=== PATIENT | female | born 1950 | race Hispanic/Latino ===

== ENCOUNTER 2017-10-04 08:26 | Day surgery (SDC) | payer OTHER ==
[~2017-10-04] VITALS: Ht 157.5 cm; Wt 65.8 kg
[~2017-10-04 08:26] MED LIST: SODIUM CHLORIDE 0.9% 1000ML 1,000 ML IV ONE
[2017-10-04 09:20] VITALS: BP 162/68
[2017-10-04] MEDS ORDERED: GUAI200T5 PO (09:51)
[2017-10-04] MEDS ORDERED: L.AC1CAP6 PO (09:51)
[2017-10-04] MEDS ORDERED: NAPR250T4 PO (09:51)
[2017-10-04] MEDS ORDERED: CA C1TAB95 PO (09:51)
[2017-10-04] MEDS ORDERED: ERGO500014 PO (09:51)
[2017-10-04] MEDS ORDERED: MONT10TA21 PO (09:51)
[2017-10-04] MEDS ORDERED: FLUO10CA21 PO (09:51)
[2017-10-04] MEDS ORDERED: RIZA10TA27 PO (09:51)
[2017-10-04] MEDS ORDERED: MEPERIDINE-PF 50 MG/ML SYG ONE ×3 (10:37→10:51)
[2017-10-04] MEDS ORDERED: MIDAZOLAM HCL 1 MG/ML 2ML VIAL ONE ×2 (10:38→10:51)
[2017-10-04 11:06] VITALS: BP 139/83
== END 2017-10-04 11:47 ==
LOC: ENDO 08:26 → DAH 08:26 → ENDO 11:47
PROVIDERS: ATTEND Internal Medicine Gastroenterology
DX: Z12.11 Encounter for screening for malignant neoplasm of colon (principal); K57.30 Diverticulosis of large intestine without perforation or abscess without bleeding; K21.9 Gastro-esophageal reflux disease without esophagitis; E78.4 Other hyperlipidemia; G43.909 Migraine, unspecified, not intractable, without status migrainosus; F32.9 Major depressive disorder, single episode, unspecified; Z90.710 Acquired absence of both cervix and uterus; Z79.899 Other long term (current) drug therapy; Z80.0 Family history of malignant neoplasm of digestive organs
CPT/HCPCS: A4606; G0121; J2175 ×3; J2250 ×2; J7030; 99152; 99153

== ENCOUNTER → 2018-08-17 | Outpatient (CLI) | payer OTHER ==
[~2018-08-17] MED LIST changes: +CA C1TAB95 PO; +ERGO500014 PO; +FLUO10CA21 PO; +GUAI200T5 PO; +L.AC1CAP6 PO; +MONT10TA21 PO; +NAPR250T4 PO; +RIZA10TA27 PO; -SODIUM CHLORIDE 0.9% 1000ML 1,000 ML IV ONE
== END | disposition home or self-care (01) ==
LOC: RAH 13:28
PROVIDERS: ATTEND Internal Medicine Critical Care Medicine
DX: G93.5 Compression of brain (principal)
CPT/HCPCS: 70551

== ENCOUNTER → 2018-11-07 | Outpatient (CLI) | payer OTHER | END | disposition home or self-care (01) | LOC: OIH 09:30 | PROVIDERS: ATTEND Internal Medicine Critical Care Medicine | DX: Z13.6 Encounter for screening for cardiovascular disorders (principal) | CPT/HCPCS: 75571 ==

== ENCOUNTER → 2018-11-07 | Outpatient (CLI) | payer OTHER | END | disposition home or self-care (01) | LOC: OIH 08:57 | PROVIDERS: ATTEND Internal Medicine Critical Care Medicine | DX: Z01.818 Encounter for other preprocedural examination (principal) | CPT/HCPCS: 71046 ==

== ENCOUNTER → 2019-03-07 | Outpatient (CLI) | payer OTHER | END | disposition home or self-care (01) | LOC: RAH 11:39 | PROVIDERS: ATTEND Internal Medicine Critical Care Medicine | DX: M19.041 Primary osteoarthritis, right hand (principal) | CPT/HCPCS: 73140 ==

== ENCOUNTER → 2019-06-28 | Outpatient (CLI) | payer OTHER | END | disposition home or self-care (01) | LOC: RAH 10:48 | PROVIDERS: ATTEND Internal Medicine | DX: Z12.31 Encounter for screening mammogram for malignant neoplasm of breast (principal) | CPT/HCPCS: 77067 ==

== ENCOUNTER → 2019-07-18 | Outpatient (CLI) | payer OTHER | END | disposition home or self-care (01) | LOC: RAH 08:51 → EDBD 09:00 | PROVIDERS: ATTEND Internal Medicine | DX: K22.4 Dyskinesia of esophagus (principal) | CPT/HCPCS: 74220 ==

== ENCOUNTER 2019-09-02 19:25 | Emergency (ER) | payer OTHER ==
[2019-09-02 20:37] LABS: BASOPHILS % (AUTO) 0.4 % (0.0-5.0); EOSINOPHILS % (AUTO) 1.5 % (0.0-8.0); HEMATOCRIT 39.3 % (36-48); MEAN CORPUSCULAR HEMOGLOBIN 29.7 pg (27.0-33.0); MEAN CORPUSCULAR HGB CONC 32.8 g/dL (32.0-36.0); MEAN CORPUSCULAR VOLUME 90.3 fL (79-99); MONOCYTES % (AUTO) 10.5 % (3.0-13.0); NEUTROPHILS % (AUTO) 51.3 % (40.0-77.0); PLATELET COUNT (AUTO) 252 K/uL (130-400); RED BLOOD CELL COUNT(AUTO) 4.35 MIL/uL (4.00-5.50); RED CELL DISTRIBUTION WIDTH 13.2 % (11.0-15.5); WHITE BLOOD COUNT (AUTO) 7.5 K/uL (4.8-10.8)
[2019-09-02 20:45] LABS: CREATININE 0.7 mg/dL (0.5-1.5); POTASSIUM 3.3 mmol/L (3.5-5.1)
[2019-09-02 20:56] LABS: ALBUMIN 3.7 g/dL (3.5-5.0); BILIRUBIN,TOTAL 0.2 mg/dL (0.2-1.0); TOTAL PROTEIN, SERUM 7.5 g/dL (6.0-8.3)
[2019-09-02 20:57] LABS: INR 0.9 (0.85-1.15); PARTIAL THROMBOPLASTIN TIME 27.3 SEC (26.3-35.5); PROTHROMBIN TIME 9.5 SEC (9.6-11.6)
[2019-09-02 20:58] LABS: APPEARANCE,URINE Clear (CLEAR); BILIRUBIN,URINE Negative (NEGATIVE); COLOR,URINE Yellow (YELLOW); GLUCOSE, URINE (UA) Negative (NEGATIVE); KETONES,URINE Negative (NEGATIVE); LEUKOCYTE ESTERASE ,URINE Trace (NEGATIVE); NITRATE,URINE Negative (NEGATIVE); OCCULT BLOOD,URINE Trace (NEGATIVE); PH,URINE 5.5 (5.0-8.0); PROTEIN,URINE Negative (NEGATIVE); UROBILINOGEN,URINE 0.2 mg/dL (0.2-1.0)
[2019-09-02 21:08] LABS: BACTERIA,URINE Few /HPF (None Seen); MUCUS,URINE Few LPF (None Seen); SQUAMOUS EPITHELIAL CELL,UR Few /HPF (0-2)
[2019-09-02] MEDS ORDERED: POTASSIUM CHLORIDE 20 MEQ ERTAB PO ONE (21:16)
[2019-09-02] MEDS ORDERED: SODIUM CHLORIDE 0.9% 1000ML 1,000 ML IV ONE (21:16)
[2019-09-02 21:18] LABS: B-TYPE NATRIURETIC PEPTIDE < 5 pg/mL (0-100)
== END 2019-09-02 22:50 | disposition home or self-care (01) ==
LOC: EDH 19:25
DX: R42 Dizziness and giddiness (principal); I10 Essential (primary) hypertension; F41.9 Anxiety disorder, unspecified; F32.9 Major depressive disorder, single episode, unspecified
CPT/HCPCS: 36415; 70450; 71045; 80053; 81001; 82550; 83880; 84484; 85025; 85610; 85730; 93005; 99284; J7030

== ENCOUNTER 2019-12-09 19:49 | Emergency (ER) | payer OTHER ==
[2019-12-09 20:30] LABS: BASOPHILS % (AUTO) 0.2 % (0.0-5.0); EOSINOPHILS % (AUTO) 0.4 % (0.0-8.0); HEMATOCRIT 31.7 % (36-48); LYMPHOCYTES % (AUTO) 21.7 % (21.0-51.0); MEAN CORPUSCULAR HEMOGLOBIN 30.6 pg (27.0-33.0); MEAN CORPUSCULAR HGB CONC 33.4 g/dL (32.0-36.0); MEAN CORPUSCULAR VOLUME 91.6 fL (79-99); MONOCYTES % (AUTO) 5.6 % (3.0-13.0); NEUTROPHILS % (AUTO) 71.9 % (40.0-77.0); PLATELET COUNT (AUTO) 176 K/uL (130-400); RED BLOOD CELL COUNT(AUTO) 3.46 MIL/uL (4.00-5.50); RED CELL DISTRIBUTION WIDTH 13.5 % (11.0-15.5); WHITE BLOOD COUNT (AUTO) 9.3 K/uL (4.8-10.8)
[2019-12-09 20:40] LABS: CREATININE 0.8 mg/dL (0.5-1.5); POTASSIUM 3.1 mmol/L (3.5-5.1)
[2019-12-09 20:44] LABS: ALBUMIN 3.9 g/dL (3.5-5.0); BILIRUBIN,TOTAL 0.1 mg/dL (0.2-1.0); TOTAL PROTEIN, SERUM 7.4 g/dL (6.0-8.3)
[2019-12-09 20:46] LABS: INR 0.91 (0.85-1.15); PARTIAL THROMBOPLASTIN TIME 24.3 SEC (26.3-35.5); PROTHROMBIN TIME 9.9 SEC (9.6-11.6)
[2019-12-09 21:32] LABS: APPEARANCE,URINE Clear (CLEAR); BILIRUBIN,URINE Negative (NEGATIVE); COLOR,URINE Yellow (YELLOW); GLUCOSE, URINE (UA) Negative (NEGATIVE); KETONES,URINE Negative (NEGATIVE); LEUKOCYTE ESTERASE ,URINE Negative (NEGATIVE); NITRATE,URINE Negative (NEGATIVE); OCCULT BLOOD,URINE Nonhemolyzed Trace (NEGATIVE); PROTEIN,URINE Negative (NEGATIVE); UROBILINOGEN,URINE 0.2 mg/dL (0.2-1.0)
[2019-12-09 21:39] LABS: AMPHET/METH SCREEN,URINE NEGATIVE (NEGATIVE); BARBITURATE SCREEN, URINE NEGATIVE (NEGATIVE); BENZODIAZEPINES SCREEN,URINE NEGATIVE (NEGATIVE); CANNABINOID SCREEN,URINE NEGATIVE (NEGATIVE); COCAINE SCREEN,URINE NEGATIVE (NEGATIVE); OPIATE SCREEN,URINE NEGATIVE (NEGATIVE); PHENCYCLIDINE SCREEN,URINE NEGATIVE (NEGATIVE)
[2019-12-09 21:54] LABS: BACTERIA,URINE None Seen /HPF (None Seen); RBC,URINE 0-1 /HPF (0-1); WBC,URINE None Seen /HPF (0-1)
[2019-12-09 21:55] LABS: SQUAMOUS EPITHELIAL CELL,UR Rare /HPF (0-2)
== END 2019-12-09 22:34 | disposition home or self-care (01) ==
LOC: EDH 19:49
DX: F10.129 Alcohol abuse with intoxication, unspecified (principal); R41.82 Altered mental status, unspecified; R79.1 Abnormal coagulation profile; I10 Essential (primary) hypertension; F41.9 Anxiety disorder, unspecified; F32.9 Major depressive disorder, single episode, unspecified
CPT/HCPCS: 36415; 70450; 80053; 80305; 81001; 82140; 82270; 82550; 84484; 85025; 85610; 85730; 93005; 99284; G0480

== ENCOUNTER → 2020-04-05 | Outpatient (CLI) | payer OTHER | END | disposition home or self-care (01) | LOC: RAH 14:04 | PROVIDERS: ATTEND Internal Medicine | DX: M75.41 Impingement syndrome of right shoulder (principal); M77.9 Enthesopathy, unspecified | CPT/HCPCS: 73030 ==

== ENCOUNTER → 2020-04-16 | Outpatient (CLI) | payer OTHER | END | disposition home or self-care (01) | LOC: RAH 08:51 | PROVIDERS: ATTEND Internal Medicine | DX: M75.41 Impingement syndrome of right shoulder (principal); M77.9 Enthesopathy, unspecified | CPT/HCPCS: 73221 ==

== ENCOUNTER 2021-05-29 13:59 | Inpatient (IN) | payer MEDICARE, OTHER ==
[~2021-05-29] VITALS: Ht 157.5 cm; Wt 65.8 kg
[~2021-05-29 13:59] MED LIST changes: +NAPR-1196 PO; -NAPR250T4 PO
[2021-05-29] MEDS ORDERED: LACTATED RINGERS 1000ML 1,000 ML IV ONE ×2 (14:22→14:30)
[2021-05-29] MEDS ORDERED: HYDROMORPHONE 1 MG INJ ONE (14:22)
[2021-05-29] MEDS ORDERED: ONDANSETRON 4MG INJ ONE (14:22)
[2021-05-29 14:23] LABS: BASOPHILS % (AUTO) 0.2 % (0.0-5.0); EOSINOPHILS % (AUTO) 0.2 % (0.0-8.0); HEMATOCRIT 41.7 % (36-48); LYMPHOCYTES % (AUTO) 11.2 % (21.0-51.0); MEAN CORPUSCULAR HEMOGLOBIN 29.7 pg (27.0-33.0); MEAN CORPUSCULAR HGB CONC 32.9 g/dL (32.0-36.0); MEAN CORPUSCULAR VOLUME 90.3 fL (79-99); MONOCYTES % (AUTO) 5.3 % (3.0-13.0); NEUTROPHILS % (AUTO) 82.8 % (40.0-77.0); PLATELET COUNT (AUTO) 229 K/uL (130-400); RED BLOOD CELL COUNT(AUTO) 4.62 MIL/uL (4.00-5.50); RED CELL DISTRIBUTION WIDTH 12.9 % (11.0-15.5); WHITE BLOOD COUNT (AUTO) 11.8 K/uL (4.8-10.8)
[2021-05-29] MEDS ORDERED: HYDROMORPHONE 1 MG INJ IVP ONE (14:30)
[2021-05-29] MEDS ORDERED: ONDANSETRON 4MG INJ IVP ONE (14:30)
[2021-05-29 14:37] LABS: CREATININE 0.9 mg/dL (0.5-1.5); POTASSIUM 3.7 mmol/L (3.5-5.1)
[2021-05-29 14:42] LABS: ALBUMIN 4.1 g/dL (3.5-5.0); BILIRUBIN,TOTAL 0.2 mg/dL (0.2-1.0); TOTAL PROTEIN, SERUM 7.8 g/dL (6.0-8.3)
[2021-05-29] MEDS ORDERED: METOCLOPRAMIDE 10 MG/2 ML VIAL IVP ONE (16:30)
[2021-05-29 16:41] LABS: APPEARANCE,URINE Clear (CLEAR); BILIRUBIN,URINE Negative (NEGATIVE); COLOR,URINE Yellow (YELLOW); GLUCOSE, URINE (UA) Negative (NEGATIVE); KETONES,URINE Negative (NEGATIVE); LEUKOCYTE ESTERASE ,URINE Negative (NEGATIVE); NITRATE,URINE Negative (NEGATIVE); OCCULT BLOOD,URINE Trace (NEGATIVE); PH,URINE 7.5 (5.0-8.0); PROTEIN,URINE Negative (NEGATIVE); UROBILINOGEN,URINE 0.2 mg/dL (0.2-1.0)
[2021-05-29] MEDS ORDERED: MORPHINE 5 MG/ML VIAL (5MG OR GREATER DOSE) IV ONE (17:00)
[2021-05-29 17:04] LABS: BACTERIA,URINE Rare /HPF (None Seen); MUCUS,URINE Few LPF (None Seen); SQUAMOUS EPITHELIAL CELL,UR Rare /HPF (0-2); WBC,URINE 0-1 /HPF (0-1)
[2021-05-29] MEDS: 0.9%NACL 1000ML 1,000 ML IV SCH (18:50)
[2021-05-29] MEDS: FAMOTIDINE 20MG VIAL IV SCH (22:04)
[2021-05-30 00:16] VITALS: BP 171/75
[2021-05-30] MEDS ORDERED: MORPHINE 2 MG SYG IVP ONE (00:30)
[2021-05-30] MEDS ORDERED: MORPHINE 2 MG SYG ONE ×2 (00:32→15:00)
[2021-05-30] MEDS ORDERED: ONDANSETRON ODT 4MG TAB SL PRN (02:00)
[2021-05-30] MEDS ORDERED: MORPHINE 4 MG SYG IV PRN (02:00)
[2021-05-30] MEDS: 0.9%NACL 1000ML 1,000 ML IV SCH ×3 (03:20→23:30)
[2021-05-30 03:45] VITALS: BP 173/96
[2021-05-30 04:11] LABS: BASOPHILS % (AUTO) 0.2 % (0.0-5.0); EOSINOPHILS % (AUTO) 0.1 % (0.0-8.0); LYMPHOCYTES % (AUTO) 15.8 % (21.0-51.0); MEAN CORPUSCULAR HEMOGLOBIN 29.9 pg (27.0-33.0); MEAN CORPUSCULAR VOLUME 90.7 fL (79-99); MONOCYTES % (AUTO) 9.5 % (3.0-13.0); NEUTROPHILS % (AUTO) 74.1 % (40.0-77.0); PLATELET COUNT (AUTO) 221 K/uL (130-400); RED BLOOD CELL COUNT(AUTO) 4.41 MIL/uL (4.00-5.50); WHITE BLOOD COUNT (AUTO) 10.7 K/uL (4.8-10.8)
[2021-05-30 04:29] LABS: ALBUMIN 3.7 g/dL (3.5-5.0); BILIRUBIN,TOTAL 0.3 mg/dL (0.2-1.0); CREATININE 0.8 mg/dL (0.5-1.5); POTASSIUM 3.6 mmol/L (3.5-5.1); TOTAL PROTEIN, SERUM 7.2 g/dL (6.0-8.3)
[2021-05-30] MEDS ORDERED: HYDRALAZINE 20MG/ML VIAL IV PRN (06:30)
[2021-05-30 08:20] VITALS: BP 177/89
[2021-05-30] MEDS: ENOXAPARIN SODIUM 30 MG/0.3 ML SQ SCH (08:36)
[2021-05-30] MEDS ORDERED: ONDANSETRON 4MG INJ ONE (09:16)
[2021-05-30] MEDS ORDERED: ONDANSETRON 4MG INJ IVP PRN (09:30)
[2021-05-30 10:43] VITALS: BP 136/73
[2021-05-30] MEDS ORDERED: MORPHINE 2 MG SYG IVP PRN (15:00)
[2021-05-30] MEDS ORDERED: ACETAMINOPHEN WITH CODEINE 1 TAB TAB PO PRN (15:00)
[2021-05-30 15:51] VITALS: BP 153/82
[2021-05-30] MEDS ORDERED: AMIT50TA3 PO (17:32)
[2021-05-30] MEDS ORDERED: RIZA10TA41 PO (17:32)
[2021-05-30] MEDS ORDERED: CALC-1058 PO (17:32)
[2021-05-30] MEDS ORDERED: CA/D1TAB7 PO (17:32)
[2021-05-30] MEDS ORDERED: MECO10005 PO (17:32)
[2021-05-30] MEDS ORDERED: ROSU5TAB12 PO (17:32)
[2021-05-30] MEDS ORDERED: LOSA50TA64 PO (17:32)
[2021-05-30] MEDS ORDERED: ASPI-1197 PO (17:32)
[2021-05-30] MEDS ORDERED: UBIQ100C2 PO (17:32)
[2021-05-30 20:00] VITALS: BP 132/77
[2021-05-30] MEDS: FAMOTIDINE 20MG VIAL IV SCH (21:38)
[2021-05-31 00:02] VITALS: BP 140/80
[2021-05-31 04:00] VITALS: BP 137/69
[2021-05-31 08:00] VITALS: BP 134/89
[2021-05-31] MEDS: ENOXAPARIN SODIUM 30 MG/0.3 ML SQ SCH (08:33)
[2021-05-31] MEDS ORDERED: UBIQUINOL 100 MG PO SCH (09:00)
[2021-05-31] MEDS ORDERED: VITAMIN D3 PO SCH (09:00)
[2021-05-31] MEDS ORDERED: RIZATRIPTAN BENZOATE 10 MG PO SCH (09:00)
[2021-05-31] MEDS ORDERED: CALCIUM CARBONATE PO SCH (09:00)
[2021-05-31] MEDS ORDERED: CYANOCOBALAMIN (VITAMIN B-12) 1,000 MCG TABLET PO SCH (09:00)
[2021-05-31] MEDS ORDERED: LOSARTAN 50 MG TABLET PO SCH (09:00)
[2021-05-31] MEDS ORDERED: ASPIRIN 81MG CHEW TAB PO SCH (09:00)
[2021-05-31] MEDS ORDERED: [UNRECOGNIZED DRUG - OTHER] PO SCH (09:00)
[2021-05-31] MEDS ORDERED: CA 600MG+VIT D 400 UNIT TAB 1 TAB TABLET PO SCH (09:00)
[2021-05-31] MEDS: 0.9%NACL 1000ML 1,000 ML IV SCH (09:01)
[2021-05-31 10:52] VITALS: BP 145/76
[2021-05-31] MEDS ORDERED: ATORVASTATIN 10 MG TABLET PO SCH (21:00)
[2021-05-31] MEDS ORDERED: AMITRIPTYLINE 25 MG TABLET PO SCH (21:00)
== END 2021-05-31 15:30 | disposition home or self-care (01) | DRG 390 ==
LOC: EDH 13:59 → EDHIP 17:18 → 3BH 21:31
PROVIDERS: ADMIT Hospitalist; ATTEND Hospitalist
PROC: 0D9670Z Drainage of Stomach with Drainage Device, Via Natural or Artificial Opening (ICD-10-PCS; principal; 2021-05-29)
DX: K56.609 Unspecified intestinal obstruction, unspecified as to partial versus complete obstruction (principal); I10 Essential (primary) hypertension; E78.5 Hyperlipidemia, unspecified; K57.30 Diverticulosis of large intestine without perforation or abscess without bleeding; D72.829 Elevated white blood cell count, unspecified; Z90.710 Acquired absence of both cervix and uterus; Z82.3 Family history of stroke; Z83.3 Family history of diabetes mellitus; Z82.49 Family history of ischemic heart disease and other diseases of the circulatory system
CPT/HCPCS: 36415; 74018; 74176; 76705; 80053; 81001; 82150; 83690; 84484; 85025; 93005; 99291; G0378; J0360; J1170; J1650; J2270; J2405; J2765; J3490; J7030; J7120

== ENCOUNTER → 2021-12-03 | Outpatient (CLI) | payer MEDICARE ==
[~2021-12-03] MED LIST changes: +AMIT50TA3 PO; +ASPI-1197 PO; +CA/D1TAB7 PO; +CALC-1058 PO; +LOSA50TA64 PO; +MECO10005 PO; +RIZA10TA41 PO; +ROSU5TAB12 PO; +UBIQ100C2 PO
== END | disposition home or self-care (01) ==
LOC: RAH 10:45
PROVIDERS: ATTEND Internal Medicine
DX: Z12.31 Encounter for screening mammogram for malignant neoplasm of breast (principal)
CPT/HCPCS: 77067

== ENCOUNTER → 2022-12-04 | Outpatient (CLI) | payer MEDICARE ==
[~2022-12-04] MED LIST changes: -CA C1TAB95 PO; +CYCL5TAB PO; -ERGO500014 PO; -FLUO10CA21 PO; -GUAI200T5 PO; -L.AC1CAP6 PO; +LIDOP TP; -MONT10TA21 PO; -NAPR-1196 PO; -RIZA10TA27 PO
== END | disposition home or self-care (01) ==
LOC: RAH 09:17
PROVIDERS: ATTEND Internal Medicine
DX: Z12.31 Encounter for screening mammogram for malignant neoplasm of breast (principal)
CPT/HCPCS: 77067

== ENCOUNTER → 2023-08-12 | Outpatient (CLI) | payer MEDICARE | END | disposition home or self-care (01) | LOC: RAH 11:47 | PROVIDERS: ATTEND Internal Medicine | DX: M17.12 Unilateral primary osteoarthritis, left knee (principal); M25.562 Pain in left knee; M19.072 Primary osteoarthritis, left ankle and foot | CPT/HCPCS: 73562; 73590 ==

== ENCOUNTER → 2023-12-06 | Outpatient (CLI) | payer MEDICARE | END | disposition home or self-care (01) | LOC: RAH 08:36 | PROVIDERS: ATTEND Internal Medicine | DX: Z12.31 Encounter for screening mammogram for malignant neoplasm of breast (principal); R92.323 Mammographic fibroglandular density, bilateral breasts | CPT/HCPCS: 77067 ==

== ENCOUNTER → 2024-03-22 | Outpatient (CLI) | payer MEDICARE ==
[~2024-03-22] MED LIST changes: -ROSU5TAB12 PO; +ROSU5TAB43 PO
[2024-03-22 11:38] LABS: BASOPHILS # (AUTO) 0.04 K/uL (0.00-0.20); BASOPHILS % (AUTO) 0.6 % (0.0-5.0); EOSINOPHILS # (AUTO) 0.08 K/uL (0.00-0.70); EOSINOPHILS % (AUTO) 1.2 % (0.0-8.0); HEMATOCRIT 40.7 % (36-48); IMMATURE GRANULOCYTE ABSOLUTE 0.01 K/uL (0-1); LYMPHOCYTES # (AUTO) 2.2 K/uL (1.0-4.8); LYMPHOCYTES % (AUTO) 34.7 % (21.0-51.0); MEAN CORPUSCULAR HGB CONC 32.7 g/dL (32.0-36.0); MEAN CORPUSCULAR VOLUME 91.9 fL (79-99); MONOCYTES # (AUTO) 0.6 K/uL (0.1-1.0); MONOCYTES % (AUTO) 9.1 % (3.0-13.0); NEUTROPHILS # (AUTO) 3.5 K/uL (1.8-7.7); NEUTROPHILS % (AUTO) 54.2 % (40.0-77.0); PLATELET COUNT (AUTO) 230 K/uL (130-400); RED BLOOD CELL COUNT(AUTO) 4.43 MIL/uL (4.00-5.50); RED CELL DISTRIBUTION WIDTH 13.6 % (11.0-15.5); WHITE BLOOD COUNT (AUTO) 6.5 K/uL (4.8-10.8)
[2024-03-22 12:04] LABS: CREATININE 0.7 mg/dL (0.5-1.0); POTASSIUM 4.1 mmol/L (3.5-5.1)
== END | disposition home or self-care (01) ==
LOC: RAH 10:59
PROVIDERS: ATTEND Internal Medicine
DX: G47.61 Periodic limb movement disorder (principal); M79.89 Other specified soft tissue disorders; I83.813 Varicose veins of bilateral lower extremities with pain; Z98.890 Other specified postprocedural states
CPT/HCPCS: 36415; 80048; 82728; 85025; 86431; 93925; 93970

== ENCOUNTER → 2024-07-20 | Outpatient (CLI) | payer MEDICARE ==
[~2024-07-20] MED LIST changes: -CYCL5TAB PO; +CYCL5TAB3 PO; -ROSU5TAB43 PO; +ROSU5TAB51 PO
--- NOTE | 2024-07-20 14:27 | HMCIMG ---
DEXA BONE DENSITY SURVEY REASON: Age-related osteoporosis without current pathological fracture COMPARISON: None TECHNIQUE: DEXA bone densitometry was performed in the lumbar spine and left hip. FINDINGS: Mean bone mass density in the spine is 0.670 g present with square, T score -3.4, corresponding with osteoporosis. Femoral neck T score is -1.5 consistent with osteopenia. IMPRESSION: 1. Osteoporosis consistent with a high fracture risk.
== END | disposition home or self-care (01) ==
LOC: RAH 13:31
PROVIDERS: ATTEND Internal Medicine
DX: Z13.820 Encounter for screening for osteoporosis (principal); M81.0 Age-related osteoporosis without current pathological fracture; M48.8X2 Other specified spondylopathies, cervical region
CPT/HCPCS: 77080

== ENCOUNTER 2024-08-17 18:01 | Emergency (ER) | payer MEDICARE ==
[~2024-08-17] VITALS: Ht 154.9 cm; Wt 67.1 kg
[2024-08-17 18:04] VITALS: BP 167/95; PULSE 74; RESP 16; TEMP 97.9
--- NOTE | 2024-08-17 18:19 | EKG ---
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
[2024-08-17 19:55] LABS: APPEARANCE,URINE CLEAR (CLEAR); BILIRUBIN,URINE NEGATIVE (NEGATIVE); COLOR,URINE LIGHT-YELLOW (YELLOW); GLUCOSE, URINE (UA) NEGATIVE (NEGATIVE); KETONES,URINE NEGATIVE (NEGATIVE); LEUKOCYTE ESTERASE ,URINE NEGATIVE Leu/uL (NEGATIVE); NITRATE,URINE NEGATIVE (NEGATIVE); OCCULT BLOOD,URINE NEGATIVE (NEGATIVE); PROTEIN,URINE NEGATIVE (NEGATIVE); UROBILINOGEN,URINE 0.2 mg/dL (0.2-1.0)
[2024-08-17 19:57] LABS: ADD UA MICROSCOPIC YES
[2024-08-17 20:01] LABS: MUCUS,URINE RARE LPF (None Seen)
[2024-08-17 20:18] LABS: BASOPHILS # (AUTO) 0.03 K/uL (0.00-0.20); BASOPHILS % (AUTO) 0.2 % (0.0-5.0); EOSINOPHILS # (AUTO) 0.01 K/uL (0.00-0.70); EOSINOPHILS % (AUTO) 0.1 % (0.0-8.0); HEMATOCRIT 39.9 % (36-48); IMMATURE GRANULOCYTE ABSOLUTE 0.06 K/uL (0-1); LYMPHOCYTES # (AUTO) 0.9 K/uL (1.0-4.8); MEAN CORPUSCULAR HEMOGLOBIN 29.9 pg (27.0-33.0); MEAN CORPUSCULAR HGB CONC 33.1 g/dL (32.0-36.0); MEAN CORPUSCULAR VOLUME 90.5 fL (79-99); MONOCYTES # (AUTO) 0.5 K/uL (0.1-1.0); MONOCYTES % (AUTO) 3.7 % (3.0-13.0); NEUTROPHILS # (AUTO) 11.8 K/uL (1.8-7.7); NEUTROPHILS % (AUTO) 88.6 % (40.0-77.0); NUCLEATED RED BLOOD CELLS 0.2 % (0.0-0.19); PLATELET COUNT (AUTO) 244 K/uL (130-400); RED BLOOD CELL COUNT(AUTO) 4.41 MIL/uL (4.00-5.50); RED CELL DISTRIBUTION WIDTH 13.5 % (11.0-15.5); WHITE BLOOD COUNT (AUTO) 13.4 K/uL (4.8-10.8)
[2024-08-17] MEDS: FAMOTIDINE 20MG VIAL IV ONE (20:30)
[2024-08-17] MEDS: ondanSETRON 4MG INJ IVP ONE (20:30)
[2024-08-17 20:31] LABS: CARBON DIOXIDE 27 mmol/L (21-32); CHLORIDE 103 mmol/L (101-111); CREATININE 0.7 mg/dL (0.5-1.0); GLOMERULAR FILTR. RATE CALC 90 mL/min (>90); GLUCOSE,RANDOM 130 mg/dL (70-105); POTASSIUM 4.7 mmol/L (3.5-5.1); SODIUM SERUM 138 mmol/L (136-145); UREA NITROGEN, BLOOD 28 mg/dL (7-18)
[2024-08-17] MEDS: 0.9%NACL 1000ML 1,000 ML IV ONE (20:31)
[2024-08-17] MEDS ORDERED: IOHEXOL-350 75 ML VIAL IV ONE (20:34)
[2024-08-17 20:40] LABS: ALANINE AMINOTRANSFERASE 22 U/L (12-78); ALBUMIN 3.8 g/dL (3.5-5.0); ASPARTATE AMINOTRANSFERASE 22 U/L (10-37); BILIRUBIN,DIRECT < 0.1 mg/dL (0.0-0.3); BILIRUBIN,TOTAL 0.2 mg/dL (0.2-1.0); TOTAL PROTEIN, SERUM 7.2 g/dL (6.0-8.3)
--- NOTE | 2024-08-17 20:59 | HMCIMG ---
CT ABDOMEN WITH CONTRAST. CT PELVIS WITH CONTRAST INDICATION: Right upper abdominal pain TECHNIQUE: Routine transaxial images using 5 mm slice thickness were obtained after the intravenous infusion of 75 mL of Omnipaque 350 without adverse effects. Oral contrast was not administered. Rectal contrast was not administered. Coronal and sagittal reformatted images acquired for interpretation. CT was performed with one or more of the following dose reduction techniques: Automated exposure control, adjustment of the mA and/or kV according to patient size, or use of iterative reconstruction technique. COMPARISON: 05/29/2021 FINDINGS: ABDOMEN: Heart size is normal. Visible lung bases are clear. The liver is normal in size and smooth in contour without lesions or biliary duct dilation. The spleen is normal in size without lesions. The gallbladder is contracted. The pancreas appears normal without pancreatic duct dilation. The adrenal glands appear normal. Both kidneys appear unremarkable. Cortical nephrograms are symmetric and normal in appearance bilaterally. No evidence for intra-abdominal free air or organized fluid collection. No retrocrural, intraabdominal, or retroperitoneal lymphadenopathy identified. No aortic aneurysmal dilation or dissection identified. PELVIS: No evidence for free air or organized pelvic fluid collection. No significant pelvic adenopathy detected. Several diverticula along the sigmoid colon. Mild to moderate small and large bowel liquid contents. Terminal ileum appears normal. The appendix appears normal. The urinary bladder appears unremarkable. Uterus is absent. Visible osseous structures are intact. IMPRESSION: Probable mild enterocolitis with mild to moderate small and large bowel liquid contents, but no evidence for small bowel obstruction. Sigmoid diverticulosis without diverticulitis. If concern for cholecystitis, sonographic imaging is recommended.
[2024-08-17] MEDS ORDERED: METR-172 PO (21:49)
[2024-08-17] MEDS ORDERED: FAMO-136 PO (21:49)
[2024-08-17] MEDS ORDERED: ONDA-243 PO (21:49)
--- NOTE | 2024-08-17 21:50 | ERN ---
ED Note History of Present Illness Stated Complaint: ABD PAIN Chief Complaint: Abdominal Pain Time Seen by MD: 18:09 Time Seen by Midlevel: 18:09 Allergies: Coded Allergies: No Known Drug Allergies (Unverified Allergy, Unknown, 10/04/17) Home Meds Active Scripts Metronidazole (Metronidazole) 500 Mg Tablet, 1 TAB PO BID for 5 Days, #10 TAB 0 Refills Prov:YOCASTA TREVINO 08/17/24 Famotidine (Pepcid) 20 Mg Tablet, 1 TAB PO BID for 30 Days, #60 TAB 0 Refills Prov:YOCASTA TREVINO 08/17/24 Ondansetron (Ondansetron Odt) 4 Mg Tab.rapdis, 4 MG PO BID for 7 Days, #14 TAB Prov:YOCASTA TREVINO 08/17/24 Cyclobenzaprine HCl (Cyclobenzaprine HCl) 5 Mg Tablet, 5 MG PO BID PRN for MUSCLE SPASMS, #60 TAB 0 Refills Prov:KEVAN MANCINI SPORTS MANAGEMENT INTERN 02/09/22 Lidocaine (Lidoderm Patch 5%) 1 Patch Patch, 1 PATCH TP DAILY PRN for PAIN LEVEL 7 TO 10, #5 ADH.PATCH 0 Refills Prov:KEVAN MANCINI SPORTS MANAGEMENT INTERN 02/09/22 Reported Medications Aspirin (Aspirin) 81 Mg Tab.chew, 81 MG PO DAILY, TAB.CHEW 05/30/21 Mecobalamin (B12 Active) 1,000 Mcg Tab.chew, 2500 MCG PO DAILY, TAB.CHEW 05/30/21 Losartan Potassium (Losartan Potassium) 50 Mg Tablet, 50 MG PO DAILY, TAB 05/30/21 Calcium Carbonate/Vitamin D3 (Super Calcium 600 + D3 Tablet) 1 Each Tablet, 1 EACH PO AM, TAB 05/30/21 Ca/D3/Mag/Zinc/Ananda/Juan/Mgbor (Caltrate 600+D3+Min Chew Tab) 1 Each Tab.chew, 1 EACH PO DAILY, TAB.CHEW 05/30/21 Amitriptyline HCl (Amitriptyline HCl) 50 Mg Tablet, 50 MG PO DAILY, TAB 05/30/21 Rizatriptan Benzoate (Rizatriptan) 10 Mg Tablet, 10 MG PO DAILY, TAB 05/30/21 Rosuvastatin Calcium (Rosuvastatin Calcium) 5 Mg Tablet, 5 MG PO DAILY, TAB 05/30/21 Ubiquinol (Ubiquinol) 100 Mg Capsule, 100 MG PO DAILY, CAP 05/30/21 Past Medical History Dictation Patient is a 74-year-old female with a past medical history of small-bowel obstruction presenting to the emergency department with severe abdominal pain. Associated symptoms include nausea but no vomiting, fever, chills or any other symptoms at this time. Past Medical History: High Cholesterol, Hypertension, Migraines Surgical History: Hysterectomy, Tonsillectomy Surgical History Other: PARTIAL HSTERECTOMY / ESOPHAGUS SURGERY / KNEE SURGERY History: Not Applicable Review of System Dictation CONSTITUTIONAL: Negative except for HPI HEAD/FACE: Negative except for HPI EENT: Negative except for HPI RESPIRATORY: Negative except for HPI GASTROINTESTINAL/ABDOMINAL: Negative except for HPI GENITOURINARY: Negative except for HPI MUSCULOSKELETAL: Negative except for HPI INTEGUMENTARY: Negative except for HPI NEUROLOGICAL/PSYCH: Negative except for HPI HEMATOLOGIC/LYMPHATIC: Negative except for HPI All Systems Negative, Except as noted above. 13 point review of systems assessed and all negative except for above. Initial Vital Sign VS Vital Signs Date Time Temp Pulse Resp B/P (MAP) Pulse Ox O2 Delivery O2 Flow Rate FiO2 08/17/24 18:04 97.9 74 16 167/95 99 Room Air Physical Exam Dictation Vital Signs reviewed General Appearance: Alert, oriented x 3, no acute distress, well developed, nourished. Head and Face: non-traumatic. Eyes: PERRL, pink conjunctivas, eyelid no trauma, anterior chamber with arcus senilis. Ears: Pinnas intact and no signs of trauma or erythema ear canals clear and no discharge TM no erythema Nose: No discharge, no bleeding. Oropharynx: Mouth normal, tongue pink, pharynx clear,no erythema, tonsils no exudates, no abscesses noted, mucous membrane moist Neck: Supple, non-tender, no thyromegaly, no masses, no JVD, no bruits Breast:Deferred Chest:No tenderness, no crepitus, no paradoxical movement, no retractions Lungs:Clear, well-ventilated, symmetric, no rales, no wheezing, no rhonchi, no stridor, good breath sounds bilaterally Heart: Regular rate, regular rhythm, no murmur, no gallops Vascular: no peripheral edema, Abdomen: Soft, positive bowel sounds, nondistended, no guarding, nontender, no rebound, no masses no hepatomegaly, no splenomegaly, no Haddad's sign, no hernias. Rectal: Deferred Genital: Deferred Neurological: Normal speech, motor function intact, sensory function intact Musculoskeletal: Neck nontender, full range of motion, back nontender, full range of motion, Extremities: nontender, full range of motion Skin: Color pink, dry, no turgor, no rash, no lacerations, no abrasions, no contusions. Lymphatic: Deferred Results (Laboratory/Radiology) Laboratory/Radiology Laboratory Tests Test 08/17/24 19:18 08/17/24 19:55 Urine Color LIGHT-YELLOW (YELLOW) Urine Appearance CLEAR (CLEAR) Urine pH 6.0 (5.0-8.0) Urine Specific [place] 1.023 (1.001-1.031) Urine Protein NEGATIVE mg/dL (NEGATIVE) Urine Glucose (UA) NEGATIVE mg/dL (NEGATIVE) Urine Ketones NEGATIVE mg/dL (NEGATIVE) Urine Occult Blood NEGATIVE (NEGATIVE) Urine Nitrate NEGATIVE (NEGATIVE) Urine Bilirubin NEGATIVE mg/dL (NEGATIVE) Urine Urobilinogen 0.2 mg/dL (0.2-1.0) Urine Leukocyte Esterase NEGATIVE Sandeep/uL Urine RBC 11-25 /HPF (0-1) H Urine WBC 2-5 /HPF (0-1) H Urine Bacteria None /HPF (None Seen) White Blood Count 13.4 K/uL (4.8-10.8) H Red Blood Count 4.41 MIL/uL (4.00-5.50) Hemoglobin 13.2 g/dL (12.0-16.0) Hematocrit 39.9 % (36-48) Mean Corpuscular Volume 90.5 fL (79-99) Mean Corpuscular Hemoglobin 29.9 pg (27.0-33.0) Mean Corpuscular Hemoglobin Concent 33.1 g/dL (32.0-36.0) Red Cell Distribution Width 13.5 % (11.0-15.5) Platelet Count 244 K/uL (130-400) Mean Platelet Volume 11.0 fL (7.5-10.5) H Immature Granulocyte % (Auto) 0.4 % (0-1) Neutrophils (%) (Auto) 88.6 % (40.0-77.0) H Lymphocytes (%) (Auto) 7.0 % (21.0-51.0) L Monocytes (%) (Auto) 3.7 % (3.0-13.0) Eosinophils (%) (Auto) 0.1 % (0.0-8.0) Basophils (%) (Auto) 0.2 % (0.0-5.0) Neutrophils # (Auto) 11.8 K/uL (1.8-7.7) H Lymphocytes # (Auto) 0.9 K/uL (1.0-4.8) L Monocytes # (Auto) 0.5 K/uL (0.1-1.0) Eosinophils # (Auto) 0.01 K/uL (0.00-0.70) Basophils # (Auto) 0.03 K/uL (0.00-0.20) Absolute Immature Granulocyte (auto 0.06 K/uL (0-1) Nucleated Red Blood Cells 0.2 % (0.0-0.19) H White Cell Morphology Comment See comments Sodium Level 138 mmol/L (136-145) Potassium Level 4.7 mmol/L (3.5-5.1) Chloride Level 103 mmol/L (101-111) Carbon Dioxide Level 27 mmol/L (21-32) Blood Urea Nitrogen 28 mg/dL (7-18) H Creatinine 0.7 mg/dL (0.5-1.0) Glomerular Filtration Rate Calc 90 mL/min (>90) Random Glucose 130 mg/dL (70-105) H Total Calcium 9.4 mg/dL (8.5-10.1) Total Bilirubin 0.2 mg/dL (0.2-1.0) Direct Bilirubin < 0.1 mg/dL (0.0-0.3) Aspartate Amino Transf (AST/SGOT) 22 U/L (10-37) Alanine Aminotransferase (ALT/SGPT) 22 U/L (12-78) Alkaline Phosphatase 123 U/L (50-136) Troponin I High Sensitivity 5 ng/L (4-50) Total Protein 7.2 g/dL (6.0-8.3) Albumin 3.8 g/dL (3.5-5.0) Lipase 31 U/L (16-77) Labs Reviewed?: Yes ED Course ED Course Orders Procedure Category Date Status Time 12 Lead Ekg Tracing- EKG 08/17/24 Complete Technical 18:09 Cbc With Differential LAB 08/17/24 Complete 18:09 Basic Metabolic Panel LAB 08/17/24 Complete 18:09 Hepatic Function Panel LAB 08/17/24 Complete 18:09 Lipase LAB 08/17/24 Complete 18:09 Urinalysis Profile LAB 08/17/24 Complete 18:09 Troponin I High LAB 08/17/24 Complete Sensitivity 18:09 0.9%Nacl 1000ml (Ns PHA 08/17/24 Complete 1000ml) 18:30 Ondansetron 4mg Inj PHA 08/17/24 Complete (Zofran 4mg Inj) 18:30 Famotidine 20mg Vial PHA 08/17/24 Complete (Pepcid 20mg Vial) 18:30 Ct Abdomen/Pelvis CT 08/17/24 Resulted W/Contrast 18:43 Iohexol (Omnipaque) PHA 08/17/24 Complete 20:34 Current Medications Medications (Trade) Dose Ordered Sig/Dung Route PRN Reason Start Time Stop Time Status Last Admin Dose Admin Famotidine (Pepcid 20mg Vial) 20 mg ONCE ONCE IV 08/17/24 18:30 08/17/24 18:31 DC 08/17/24 20:30 Iohexol (Omnipaque) 75 ml STK-MED ONCE IV 08/17/24 20:34 08/17/24 20:34 DC Ondansetron HCl (zoFRAN 4MG INJ) 4 mg ONCE ONCE IVP 08/17/24 18:30 08/17/24 18:31 DC 08/17/24 20:30 Sodium Chloride 1,000 ml @ 0 mls/hr ONCE ONCE IV 08/17/24 18:30 08/17/24 18:31 DC 08/17/24 20:31 Vital Signs Date Time Temp Pulse Resp B/P (MAP) Pulse Ox O2 Delivery O2 Flow Rate FiO2 08/17/24 18:04 97.9 74 16 167/95 99 Room Air Medical Decision Making MDM MDM: Differential diagnosis: Small-bowel obstruction, enterocolitis, gastroenteritis There are no social concerns with this patient. Prescription drug management Prescriptions will include: Zofran, Pepcid, Flagyl Medical management and examination interpretation discussions were had by me with other qualified healthcare professionals as indicated for the patient's ca re. DX & DISP Disposition: Discharge Departure Impression: Primary Impression: Enterocolitis Condition: Stable Scripts Metronidazole (Metronidazole) 500 Mg Tablet 1 TAB PO BID for 5 Days, #10 TAB 0 Refills Prov: YOCASTA TREVINO 08/17/24 Famotidine (Pepcid) 20 Mg Tablet 1 TAB PO BID for 30 Days, #60 TAB 0 Refills Prov: YOCASTA TREVINO 08/17/24 Ondansetron (Ondansetron Odt) 4 Mg Tab.rapdis 4 MG PO BID for 7 Days, #14 TAB Prov: YOCASTA TREVINO 08/17/24 Additional Instructions: Your blood work today shows a slight elevation in your white blood cell count. Your CT scan of the abdomen and pelvis does not show any evidence of a bowel obstruction however there is evidence of enterocolitis. Follow up with your primary care doctor in 2-3 days for patient. Return to the ER if you develop any new or worsening symptoms Referrals: CHASIDY BLISS MD (PCP) Time of Disposition: 21:47 I have reviewed the case, and I agree with, Diagnosis and Plan I performed the substantive portion of the visit. I have reviewed and personall y made and approve the management plan that is documented in the note by myself or the ARASH. I acknowledge for responsibility for the patient's management plan. YOCASTA TREVINO Aug 17, 2024 21:50
== END 2024-08-17 22:04 | disposition home or self-care (01) ==
LOC: EDH 18:01
DX: K52.9 Noninfective gastroenteritis and colitis, unspecified (principal); E78.00 Pure hypercholesterolemia, unspecified; I10 Essential (primary) hypertension; G43.909 Migraine, unspecified, not intractable, without status migrainosus; Z79.82 Long term (current) use of aspirin; Z79.899 Other long term (current) drug therapy; Z90.710 Acquired absence of both cervix and uterus
CPT/HCPCS: 99285; 74177; 96374; 96375; 80076; 84484; 80048; 83690; 85025; 81001; 36415; 93005; J3490; J7030; J2405; Q9967

== ENCOUNTER 2024-09-19 11:04 | Observation (INO) | payer MEDICARE ==
[~2024-09-19] VITALS: Ht 154.9 cm; Wt 65.3 kg
[~2024-09-19 11:04] MED LIST changes: +FAMO-136 PO; +METR-172 PO; +ONDA-243 PO
--- NOTE | 2024-09-19 11:28 | ERN ---
General Chief Complaint: Dizzy/Light Headed Stated Complaint: DIZZYNESS History of Present Illness Initial Comments 74-year-old female presents for dizziness beginning earlier today. Patient reports about a week ago she had an episode of dizziness lasting about 2 hours. Her symptoms resolved. This morning she was getting an ultrasound for her abdomen by Dr. Rosalio Schuler, she stood up and felt onset of dizziness. She r eports that she has very poor balance this time. He has been consistent for the last couple of hours. She was reports a slight headache on the right side of her head. No other focal neurologic deficits. No falls. 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 Allergies: Coded Allergies: No Known Drug Allergies (Unverified Allergy, Unknown, 10/04/17) Home Meds Active Scripts Estradiol (Estrace) 0.01 % Cream.appl, 0.5 GM VG twice a week for 30 Days, #42.5 GM 0 Refills Prov:CHASIDY MCNAIR MD 09/19/24 Ergocalciferol (Vitamin D2) (Vitamin D2) 50 Mcg (2000 Unit) Tablet, 50 MCG PO DAILY for 90 Days, #90 TAB Prov:CHASIDY MCNAIR MD 09/19/24 Rizatriptan Benzoate (Rizatriptan) 10 Mg Tablet, 10 MG PO DAILY PRN for HEADACHE, #30 TAB Prov:CHASIDY MCNAIR MD 09/19/24 Famotidine (Pepcid) 20 Mg Tablet, 1 TAB PO DAILY for 90 Days, #90 TAB 0 Refills Prov:CHASIDY MCNAIR MD 09/19/24 Amitriptyline HCl (Amitriptyline HCl) 25 Mg Tablet, 25 MG PO DAILYDINNER, #90 TAB Prov:CHASIDY MCNAIR MD 09/19/24 Reported Medications Aspirin (Aspirin) 81 Mg Tab.chew, 81 MG PO DAILY, TAB.CHEW 05/30/21 Losartan Potassium (Losartan Potassium) 50 Mg Tablet, 50 MG PO DAILY, TAB 05/30/21 Rosuvastatin Calcium (Rosuvastatin Calcium) 5 Mg Tablet, 5 MG PO DAILY, TAB 05/30/21 Discontinued Reported Medications Mecobalamin (B12 Active) 1,000 Mcg Tab.chew, 2500 MCG PO DAILY, TAB.CHEW 05/30/21 Calcium Carbonate/Vitamin D3 (Super Calcium 600 + D3 Tablet) 1 Each Tablet, 1 EACH PO AM, TAB 05/30/21 Ca/D3/Mag/Zinc/Ananda/Juan/Mgbor (Caltrate 600+D3+Min Chew Tab) 1 Each Tab.chew, 1 EACH PO DAILY, TAB.CHEW 05/30/21 Amitriptyline HCl (Amitriptyline HCl) 50 Mg Tablet, 50 MG PO DAILY, TAB 05/30/21 Ubiquinol (Ubiquinol) 100 Mg Capsule, 100 MG PO DAILY, CAP 05/30/21 Discontinued Scripts Metronidazole (Metronidazole) 500 Mg Tablet, 1 TAB PO BID for 5 Days, #10 TAB 0 Refills Prov:YOCASTA TREVINO 08/17/24 Ondansetron (Ondansetron Odt) 4 Mg Tab.rapdis, 4 MG PO BID for 7 Days, #14 TAB Prov:YOCASTA TREVINO 08/17/24 Cyclobenzaprine HCl (Cyclobenzaprine HCl) 5 Mg Tablet, 5 MG PO BID PRN for MUSCLE SPASMS, #60 TAB 0 Refills Prov:KEVAN MANCINI APRN 02/09/22 Lidocaine (Lidoderm Patch 5%) 1 Patch Patch, 1 PATCH TP DAILY PRN for PAIN LEVEL 7 TO 10, #5 ADH.PATCH 0 Refills Prov:KEVAN MANCINI APRN 02/09/22 Past Medical History Past Medical History: Hypertension Past Surgical History: Tonsillectomy, Other Surgical History Other: CRAINECTOMY, RIGHT KNEE Female( History) History: Not Applicable Results Laboratory and Microbiology Lab and Micro Result Laboratory Tests Test 09/19/24 12:09 White Blood Count 6.3 K/uL (4.8-10.8) Red Blood Count 4.60 MIL/uL (4.00-5.50) Hemoglobin 13.6 g/dL (12.0-16.0) Hematocrit 41.4 % (36-48) Mean Corpuscular Volume 90.0 fL (79-99) Mean Corpuscular Hemoglobin 29.6 pg (27.0-33.0) Mean Corpuscular Hemoglobin Concent 32.9 g/dL (32.0-36.0) Red Cell Distribution Width 13.5 % (11.0-15.5) Platelet Count 224 K/uL (130-400) Mean Platelet Volume 11.0 fL (7.5-10.5) H Immature Granulocyte % (Auto) 0.3 % (0-1) Neutrophils (%) (Auto) 57.6 % (40.0-77.0) Lymphocytes (%) (Auto) 31.1 % (21.0-51.0) Monocytes (%) (Auto) 9.6 % (3.0-13.0) Eosinophils (%) (Auto) 1.1 % (0.0-8.0) Basophils (%) (Auto) 0.3 % (0.0-5.0) Neutrophils # (Auto) 3.7 K/uL (1.8-7.7) Lymphocytes # (Auto) 2.0 K/uL (1.0-4.8) Monocytes # (Auto) 0.6 K/uL (0.1-1.0) Eosinophils # (Auto) 0.07 K/uL (0.00-0.70) Basophils # (Auto) 0.02 K/uL (0.00-0.20) Absolute Immature Granulocyte (auto 0.02 K/uL (0-1) Nucleated Red Blood Cells 0.0 % (0.0-0.19) Prothrombin Time 9.9 SEC (9.6-11.6) Prothromb Time International Ratio <= 0.93 (0.85-1.15) Activated Partial Thromboplast Time 27.2 SEC (26.3-35.5) Sodium Level 144 mmol/L (136-145) Potassium Level 3.6 mmol/L (3.5-5.1) Chloride Level 107 mmol/L (101-111) Carbon Dioxide Level 26 mmol/L (21-32) Blood Urea Nitrogen 14 mg/dL (7-18) Creatinine 0.6 mg/dL (0.5-1.0) Glomerular Filtration Rate Calc 94 mL/min (>90) Random Glucose 103 mg/dL (70-105) Total Calcium 9.2 mg/dL (8.5-10.1) Total Creatine Kinase 113 U/L (21-232) # Troponin I High Sensitivity 5 ng/L (4-50) B-Type Natriuretic Peptide 49 pg/mL (0-100) LDL Cholesterol 106 mg/dL (0-99) H MDM CC: Dizziness, vertigo type symptoms Historian: Patient Comorbidities: History of Budd-Chiari malformation with a craniectomy, hypertension, high cholesterol Limitations by social determinants of health: None Differential diagnosis: Posterior stroke, vertigo, metabolic derangement, other. EKG: Sinus rhythm rate of 63 left axis deviation good R-wave progression intervals are stable no STEMI. Independently interpreted by me. Initial vital signs: BP 186/100, otherwise stable. He was vital signs improved while in the ER. CT head ( independently interpreted by me ): No acute bleed. CXR (independently interpreted by me ): No focal infiltrates or cardiomegaly. Labs (independently ordered and interpreted by me): No leukocytosis or anemia. Coags normal. Metabolic panel normal. CK normal. Troponin normal. BNP normal. LDL 106. Patient received 1 L LR. 25 mg of meclizine. Re-evaluation: Patient reports much improved symptoms. Dysdiadochokinesia improved. She has no nystagmus. That said we tried to walk the patient and she still feels a bit unsteady on her feet. We will admit for vertigo patient was benefit from an MRI and possibly Neurology consultation. Consultation: Dr Mcnair for admission ED Course Orders Procedure Category Date Status Time Cbc With Differential LAB 09/19/24 Complete 11:22 Prothrombin Time With LAB 09/19/24 Complete INR 11:22 Partial LAB 09/19/24 Complete Thromboplastin Time 11:22 Ct Head/Brain W/O CT 09/19/24 Resulted Contrast 11:22 Chest 1vw RAD 09/19/24 Resulted 11:22 12 Lead Ekg Tracing- EKG 09/19/24 Complete Technical 11:22 Creatine Kinase, Total LAB 09/19/24 Complete 11:22 Ldl Direct LAB 09/19/24 Complete 11:22 Troponin I High LAB 09/19/24 Complete Sensitivity 11:22 Urinalysis Profile LAB 09/19/24 Logged 11:22 B-Type Natriuretic LAB 09/19/24 Complete Peptide 11:22 Bedside Glucose CPOE 09/19/24 Transmitted Fingerstick 11:22 Basic Metabolic Panel LAB 09/19/24 Complete 11:22 Lactated Ringers PHA 09/19/24 Complete 1000ml (Lactated 11:30 Meclizine Hcl 25 Mg PHA 09/19/24 Complete (Antivert 25 Mg) 11:30 Mr Brain Wo Con MRI 09/19/24 Resulted 13:30 Current Medications Medications (Trade) Dose Ordered Sig/Dung Route PRN Reason Start Time Stop Time Status Last Admin Dose Admin Lactated Ringer's 1,000 ml @ 0 mls/hr ONCE ONCE IV 09/19/24 11:30 09/19/24 11:31 DC 09/19/24 12:47 Meclizine HCl (ANTIvert 25 mg) 25 mg ONCE ONCE PO 09/19/24 11:30 09/19/24 11:31 DC Vital Signs Date Time Temp Pulse Resp B/P (MAP) Pulse Ox O2 Delivery O2 Flow Rate FiO2 09/19/24 12:54 97.5 58 16 143/78 98 Room Air* 0 21 09/19/24 11:17 98.1 66 20 186/100 99 Room Air 0 DX & DISP Disposition: Inpatient Departure Impression: Primary Impression: Dizziness Condition: Stable Scripts Estradiol (Estrace) 0.01 % Cream.appl 0.5 GM VG twice a week for 30 Days, #42.5 GM 0 Refills Prov: CHASIDY MCNAIR MD 09/19/24 Ergocalciferol (Vitamin D2) (Vitamin D2) 50 Mcg (2000 Unit) Tablet 50 MCG PO DAILY for 90 Days, #90 TAB Prov: CHASIDY MCNAIR MD 09/19/24 Rizatriptan Benzoate (Rizatriptan) 10 Mg Tablet 10 MG PO DAILY PRN for HEADACHE, #30 TAB Prov: CHASIDY MCNAIR MD 09/19/24 Famotidine (Pepcid) 20 Mg Tablet 1 TAB PO DAILY for 90 Days, #90 TAB 0 Refills Prov: CHASIDY MCNAIR MD 09/19/24 Amitriptyline HCl (Amitriptyline HCl) 25 Mg Tablet 25 MG PO DAILYDINNER, #90 TAB Prov: CHASIDY MCNAIR MD 09/19/24 Referrals: CHASIDY MCNAIR MD (PCP) GLEN HIGGINS DO Sep 19, 2024 11:28
[2024-09-19] MEDS: mecliZINE HCL 25 MG TABLET PO ONE (11:30)
--- NOTE | 2024-09-19 11:54 | EKG ---
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
--- NOTE | 2024-09-19 12:00 | HMCIMG ---
CT HEAD/BRAIN W/O CONTRAST HISTORY: Dizziness COMPARISON: None TECHNIQUE: Multiple sequential axial images of the head were obtained from the base of the skull through vertex. Patient was not given contrast through intravenous route. FINDINGS: The ventricles and extraventricular CSF spaces are dilated consistent with cerebral atrophy. Nonspecific white matter changes seen. Posterior craniectomy changes are seen. There is no midline shift, mass effect or herniation. No acute intracranial bleed is seen. Visualized portion of the paranasal sinuses are grossly within normal limits. IMPRESSION: 1. No acute intracranial bleed is seen. 2. Atrophy with white matter changes. CT was performed with one or more following dose reduction techniques: automated exposure control, adjustment of the mA and kv according to patient's size, or use of a iterative reconstruction technique.
[2024-09-19 12:19] LABS: BASOPHILS # (AUTO) 0.02 K/uL (0.00-0.20); BASOPHILS % (AUTO) 0.3 % (0.0-5.0); EOSINOPHILS # (AUTO) 0.07 K/uL (0.00-0.70); EOSINOPHILS % (AUTO) 1.1 % (0.0-8.0); HEMATOCRIT 41.4 % (36-48); IMMATURE GRANULOCYTE ABSOLUTE 0.02 K/uL (0-1); LYMPHOCYTES % (AUTO) 31.1 % (21.0-51.0); MEAN CORPUSCULAR HEMOGLOBIN 29.6 pg (27.0-33.0); MEAN CORPUSCULAR HGB CONC 32.9 g/dL (32.0-36.0); MONOCYTES # (AUTO) 0.6 K/uL (0.1-1.0); MONOCYTES % (AUTO) 9.6 % (3.0-13.0); NEUTROPHILS # (AUTO) 3.7 K/uL (1.8-7.7); NEUTROPHILS % (AUTO) 57.6 % (40.0-77.0); PLATELET COUNT (AUTO) 224 K/uL (130-400); RED CELL DISTRIBUTION WIDTH 13.5 % (11.0-15.5); WHITE BLOOD COUNT (AUTO) 6.3 K/uL (4.8-10.8)
[2024-09-19 12:34] LABS: CREATININE 0.6 mg/dL (0.5-1.0); POTASSIUM 3.6 mmol/L (3.5-5.1)
[2024-09-19 12:40] LABS: INR <= 0.93 (0.85-1.15); PROTHROMBIN TIME 9.9 SEC (9.6-11.6)
[2024-09-19 12:41] LABS: PARTIAL THROMBOPLASTIN TIME 27.2 SEC (26.3-35.5)
--- NOTE | 2024-09-19 12:41 | HMCIMG ---
CHEST 1VW HISTORY: Dizziness COMPARISON: 02/06/2022 FINDINGS: A frontal projection of the chest was obtained. No acute pulmonary infiltrates is seen. The heart is borderline enlarged. Degenerative changes are seen. No evidence of aortic calcification is seen. IMPRESSION: 1. No acute pulmonary infiltrate is seen.
[2024-09-19] MEDS: LACTATED RINGERS 1000ML 1,000 ML IV ONE (12:47)
[2024-09-19 12:49] LABS: B-TYPE NATRIURETIC PEPTIDE 49 pg/mL (0-100)
[2024-09-19] MEDS ORDERED: ondanSETRON 4MG INJ IV PRN (14:30)
[2024-09-19] MEDS ORDERED: acetaMINOPHEN 325 MG TAB PO PRN ×2 (14:30)
[2024-09-19] MEDS ORDERED: LACTULOSE 20 GM/30 ML UDCUP PO PRN (14:30)
[2024-09-19] MEDS ORDERED: AMIT25TA9 PO (14:32)
[2024-09-19] MEDS ORDERED: FAMO-136 PO (14:32)
[2024-09-19] MEDS ORDERED: RIZA10TA41 PO (14:33)
[2024-09-19] MEDS ORDERED: ERGO2000 PO (14:33)
[2024-09-19] MEDS: 0.9%NACL 1000ML 1,000 ML IV SCH (14:35)
[2024-09-19] MEDS ORDERED: ESTR42.53 VG (14:35)
--- NOTE | 2024-09-19 15:47 | HMCIMG ---
MR BRAIN WO CON HISTORY: Vertigo and dizziness COMPARISON: None TECHNIQUE: MRI of the brain was performed utilizing multiple pulse sequences in axial, coronal and sagittal planes. Patient was not given contrast through intravenous route. FINDINGS: The ventricles and extraventricular CSF spaces are dilated consistent with cerebral atrophy. Nonspecific white matter changes are seen. There is no midline shift, mass effect or herniation. No subacute hemorrhage is seen. No MR evidence of acute infarct is seen in the diffusion weighted images. Cerebellar tonsils are in normal position. No evidence of mucoperiosteal thickening is seen of the visualized paranasal sinuses. No MR evidence of a mass lesion is seen in this noncontrast study. IMPRESSION: 1. No MR evidence of acute infarct is seen in the diffusion weighted images. Atrophy with white matter changes. Motion artifacts degrading the image quality.
[2024-09-19] MEDS: MAG/ALUM/SIMETH 30 ML UDCUP PO PRN (18:18)
[2024-09-19] MEDS: LoSARTan 50 MG TABLET PO ONE (18:29)
[2024-09-19] MEDS ORDERED: hydrALAZine HCL 10 MG TABLET PO PRN (19:00)
[2024-09-19] MEDS ORDERED: ALPRAZolam 0.5 MG TABLET PO PRN (19:00)
[2024-09-19] MEDS: AMITRIPTYLINE 25 MG TABLET PO ONE (20:29)
[2024-09-19] MEDS: atorVAStatin 10 MG TABLET PO SCH (20:29)
--- NOTE | 2024-09-19 20:41 | NUR ---
PT REFUSED LIPITOR, STATES SHE HAS NEVER HAD ISSUES WITH HER CHOLESTEROL. STATES "MY CHOLESTEROL IS PERFECT". PT WAS ADVISED SHE IS FREE TO REFUSE HER MEDICATION.
--- NOTE | 2024-09-19 22:47 | HP ---
HISTORY AND PHYSICAL Date of Visit: Sep 19, 2024 Time of Visit: 22:41 ADMISSION DATE: Sep 19, 2024 at 14:23 CC: VERTIGO / DIZZINESS HPI: 74-year-old female presents for dizziness beginning earlier today. Patient reports about a week ago she had an episode of dizziness lasting about 2 hours. Her symptoms resolved. This morning she was getting an ultrasound for her abdomen by Dr. Rosalio Schuler, she stood up and felt onset of dizziness. She reports that she has very poor balance this time. He has been consistent for the last couple of hours. She was reports a slight headache on the right side of her head. No other focal neurologic deficits. No falls. PAST MEDICAL HISTORY: MIXED LIPIDS HTN WITH CKD 2 METABOLIC SYNDROME BRIANA GERD OSTEOPOROSIS CHRONIC CLUSTER RAMIREZ MIGRAINE HEADACHES CHIARI 1 MALFORMATION ESOPHAGEAL DYSMOTILITY -MANOMETRY DONE 07/2019 -MILD SPASM OF THE LOWER ESOPHAGEAL SPHINCTER S/P R KNEE MENISCAL SURGERY S/P GASTRIC FUNDOPLICATION 2011 S/P CERVICAL DECOMPRESSION 2017 IN [place] SOCIAL HISTORY: LIVES LOCALLY NO ALCOHOL TOBACCO OR DRUG ABUSE FAMILY HISTORY: + CAD DM HTN STROKES ^ Patient History: Cardiovascular disease FATHER SON Completed stroke MOTHER Diabetes mellitus FATHER Hypertension FATHER Allergies: Coded Allergies: No Known Drug Allergies (Unverified Allergy, Unknown, 10/04/17) Scheduled Amitriptyline HCl (Amitriptyline HCl), 25 MG PO DAILYDINNER Aspirin (Aspirin), 81 MG PO DAILY, (Reported) Ergocalciferol (Vitamin D2) (Vitamin D2), 50 MCG PO DAILY Estradiol (Estrace), 0.5 GM VG twice a week Famotidine (Pepcid), 1 TAB PO DAILY Losartan Potassium (Losartan Potassium), 50 MG PO DAILY, (Reported) Rosuvastatin Calcium (Rosuvastatin Calcium), 5 MG PO DAILY, (Reported) Scheduled PRN Rizatriptan Benzoate (Rizatriptan), 10 MG PO DAILY PRN for HEADACHE Discontinued Medications Amitriptyline HCl (Amitriptyline HCl), 50 MG PO DAILY, (Reported) Discontinued Reason: Prescription changed Ca/D3/Mag/Zinc/Ananda/Juan/Mgbor (Caltrate 600+D3+Min Chew Tab), 1 EACH PO DAILY, (Reported) Calcium Carbonate/Vitamin D3 (Super Calcium 600 + D3 Tablet), 1 EACH PO AM, (Reported) Cyclobenzaprine HCl (Cyclobenzaprine HCl), 5 MG PO BID PRN for MUSCLE SPASMS Lidocaine (Lidoderm Patch 5%), 1 PATCH TP DAILY PRN for PAIN LEVEL 7 TO 10 Mecobalamin (B12 Active), 2,500 MCG PO DAILY, (Reported) Metronidazole (Metronidazole), 1 TAB PO BID Ondansetron (Ondansetron Odt), 4 MG PO BID Ubiquinol (Ubiquinol), 100 MG PO DAILY, (Reported) Review of Systems Normal Eyes:, Normal Ear/Nose/Mouth/Throat, Normal Cardiovascular:, Normal Respiratory:, Normal Gastrointestinal:, Normal Genitourinary:, Normal Integumentary:, Normal Musculoskeletal:, Normal Neurological:, Normal Psy chological:, Normal Endocrine:, Normal Hematologic/Lymphatic:, Normal Allergic/Immunologic:; Abnormal Constitutional: (REFER TO HPI) Physical Exam Vital Signs Vital Signs Date Time Temp Pulse Resp B/P (MAP) Pulse Ox O2 Delivery O2 Flow Rate FiO2 09/19/24 11:17 98.1 66 20 186/100 99 Room Air 0 09/19/24 12:54 21 Appearance: Well dev, well nourished Eyes: Clear, PERRL, EOM Normal, Normal Conjuctivae/eyelid Ear/Nose/Mouth/Throat: Hearing WNL, TMs WNL, Dentition WNL Neck: Symmetric, trach midline, Thyroid WNL Cardiovascular: PMI WNL, Regular Rate, Regular Rhythm, Pedal Pulses +2, No Edema Respiratory: No Retractions, Lungs clear G.I.: Normal bowel sounds, No hernias present, No rebound tenderness Lymphatic: No lymphadenopathy neck, No lymphadenopathy axilla, No lymphadenopathy groin Musculoskeletal: Gait WNL, Normal ROM, Strength/Tone WNL Skin: No rash/ulcers, No induration/nodules Neurology: Nerves I-XII intact, Sensation WNL Psychology: Insight WNL, Orientation WNL, Memory WNL, Affect WNL Diagnostics Laboratory Tests Test 09/19/24 12:09 Range/Units White Blood Count 6.3 4.8-10.8 K/uL Red Blood Count 4.60 4.00-5.50 MIL/uL Hemoglobin 13.6 12.0-16.0 g/dL Hematocrit 41.4 36-48 % Mean Corpuscular Volume 90.0 79-99 fL Mean Corpuscular Hemoglobin 29.6 27.0-33.0 pg Mean Corpuscular Hemoglobin Concent 32.9 32.0-36.0 g/dL Red Cell Distribution Width 13.5 11.0-15.5 % Platelet Count 224 130-400 K/uL Mean Platelet Volume 11.0 7.5-10.5 fL Immature Granulocyte % (Auto) 0.3 0-1 % Neutrophils (%) (Auto) 57.6 40.0-77.0 % Lymphocytes (%) (Auto) 31.1 21.0-51.0 % Monocytes (%) (Auto) 9.6 3.0-13.0 % Eosinophils (%) (Auto) 1.1 0.0-8.0 % Basophils (%) (Auto) 0.3 0.0-5.0 % Neutrophils # (Auto) 3.7 1.8-7.7 K/uL Lymphocytes # (Auto) 2.0 1.0-4.8 K/uL Monocytes # (Auto) 0.6 0.1-1.0 K/uL Eosinophils # (Auto) 0.07 0.00-0.70 K/uL Basophils # (Auto) 0.02 0.00-0.20 K/uL Absolute Immature Granulocyte (auto 0.02 0-1 K/uL Nucleated Red Blood Cells 0.0 0.0-0.19 % Prothrombin Time 9.9 9.6-11.6 SEC Prothromb Time International Ratio <= 0.93 0.85-1.15 Activated Partial Thromboplast Time 27.2 26.3-35.5 SEC Sodium Level 144 136-145 mmol/L Potassium Level 3.6 3.5-5.1 mmol/L Chloride Level 107 101-111 mmol/L Carbon Dioxide Level 26 21-32 mmol/L Blood Urea Nitrogen 14 7-18 mg/dL Creatinine 0.6 0.5-1.0 mg/dL Glomerular Filtration Rate Calc 94 >90 mL/min Random Glucose 103 70-105 mg/dL Total Calcium 9.2 8.5-10.1 mg/dL Total Creatine Kinase 113 21-232 U/L Troponin I High Sensitivity 5 4-50 ng/L B-Type Natriuretic Peptide 49 0-100 pg/mL LDL Cholesterol 106 0-99 mg/dL Assessment/Plan Assessment/Plan ASSESSMENT: THIS IS A 74 YR OLD WOMAN WITH HISTORY OF MIXED LIPIDS HTN WITH CKD 2 METABOLIC SYNDROME BRINAA GERD OSTEOPOROSIS CHRONIC CLUSTER RAMIREZ MIGRAINE HEADACHES CHIARI 1 MALFORMATION ESOPHAGEAL DYSMOTILITY -MANOMETRY DONE 07/2019 -MILD SPASM OF THE LOWER ESOPHAGEAL SPHINCTER S/P R KNEE MENISCAL SURGERY S/P GASTRIC FUNDOPLICATION 2011 S/P CERVICAL DECOMPRESSION 2017 IN [place] SHE PRESENTED WITH PERSISTENT VERTIGO CEREBRAL ATROPHY PLAN: IVF HYDRATION NEUROLOGIC CHECKS MONITOR ON TELEMETRY ADJUST ANTI HYPERTENSIVES PRN ORDER FU BRAIN MRI SUPPLEMENT ELECTROLYTES INCREASE DIET AND REHAB TOLERATED SUPPORTIVE MEASURES CHASIDY BLISS MD Sep 19, 2024 22:47
[2024-09-19] MEDS ORDERED: mecliZINE HCL 25 MG TABLET PO PRN (23:00)
[2024-09-20] MEDS: ASPIRIN 81MG CHEW TAB PO SCH (08:57)
[2024-09-20] MEDS: FAMOTIDINE 20MG TAB PO SCH (08:58)
[2024-09-20] MEDS: LoSARTan 50 MG TABLET PO SCH (08:58)
[2024-09-20 10:21] VITALS: BP 153/68; PULSE 86; RESP 18; TEMP 98; O2SAT 99
--- NOTE | 2024-09-20 15:32 | DS ---
DISCHARGE SUMMARY Date of Visit: Sep 20, 2024 Time of Visit: 15:31 ADMISSION DATE: Sep 19, 2024 at 14:23 DISCHARGE DATE: Sep 20, 2024 ATTENDED PHYSICIAN: Mony Mcnair MD DISCHARGE DIAGNOSIS: ACUTE PERSISTENT VERTIGO CEREBRAL ATROPHY - NO ACUTE CHANGES ON MRI MIXED LIPIDS HTN WITH CKD 2 METABOLIC SYNDROME BRIANA GERD OSTEOPOROSIS CHRONIC CLUSTER RAMIREZ MIGRAINE HEADACHES CHIARI 1 MALFORMATION ESOPHAGEAL DYSMOTILITY -MANOMETRY DONE 07/2019 -MILD SPASM OF THE LOWER ESOPH AGEAL SPHINCTER S/P R KNEE MENISCAL SURGERY S/P GASTRIC FUNDOPLICATION 2011 S/P CERVICAL DECOMPRESSION 2017 IN [place] [employer] PRODUCTION SUPERVISOR(S): NONE PROCEDURES: NONE RADIOLOGY: CHEST 1VW FINDINGS: A frontal projection of the chest was obtained. No acute pulmonary infiltrates is seen. The heart is borderline enlarged. Degenerative changes are seen. No evidence of aortic calcification is seen. IMPRESSION: No acute pulmonary infiltrate is seen. CT HEAD/BRAIN W/O CONTRAST FINDINGS: The ventricles and extraventricular CSF spaces are dilated consistent with cerebral atrophy. Nonspecific white matter changes seen. Posterior craniectomy changes are seen. There is no midline shift, mass effect or herniation. No acute intracranial bleed is seen. Visualized portion of the paranasal sinuses are grossly within normal limits. IMPRESSION: No acute intracranial bleed is seen. Atrophy with white matter changes. MR BRAIN WO CON FINDINGS: The ventricles and extraventricular CSF spaces are dilated consistent with cerebral atrophy. Nonspecific white matter changes are seen. There is no midline shift, mass effect or herniation. No subacute hemorrhage is seen. No MR evidence of acute infarct is seen in the diffusion weighted images. Cerebellar tonsils are in normal position. No evidence of mucoperiosteal thickening is seen of the visualized paranasal sinuses. No MR evidence of a mass lesion is seen in this noncontrast study. IMPRESSION: No MR evidence of acute infarct is seen in the diffusion weighted images. Atrophy with white matter changes. Motion artifacts degrading the image quality. HOSPITAL COURSE: THIS IS A 74 YR OLD WOMAN WITH THE ABOVE PMH WHO PRESENTED WITH ACUTE PERSISTENT VERTIGO. SHE INITIALLY DID NOT RESPOND TO THERAPY IN ER AND HCT WAS BENIGN AND WAS NEUROLOGICALLY INTACT. SHE WAS KEPT OVERNIGHT WITH RESOLUTION OF HER SYMPTOMS AND A FOLLOW UP MRI OF THE BRAIN WAS BENIGN WELL. SHE WAS THEN DISCHARGED IN STABLE CONDITION. DIET: HEART HEALTHY ACTIVITY: AMBULATION AT [facility] CONDITION: STABLE WITH RESOLUTION OF SYMPTOMS EQUIPMENT: NONE FOLLOW UP APPOINTMENT(S): DR MCNAIR IN 2-5 DAYS DISPOSITION: HOME CODE STATUS: FULL MEDICATION RECONCILIATION : Home Medications were reconciled with hospital medications upon discharge and discussed with patient and/or responsible constitution party. RESUME PREVIOUS MEDICATIONS MECLEZINE 25 MG PO TID PRN ONLY ^ Home Meds Active Scripts Meclizine HCl (Meclizine HCl) 25 Mg Tablet, 25 MG PO TID, #30 TAB 0 Refills Prov:MONY MCNAIR MD 09/21/24 Estradiol (Estrace) 0.01 % Cream.appl, 0.5 GM VG twice a week for 30 Days, #42.5 GM 0 Refills Prov:MONY MCNAIR MD 09/19/24 Ergocalciferol (Vitamin D2) (Vitamin D2) 50 Mcg (2000 Unit) Tablet, 50 MCG PO DAILY for 90 Days, #90 TAB Prov:MONY MCNAIR MD 09/19/24 Rizatriptan Benzoate (Rizatriptan) 10 Mg Tablet, 10 MG PO DAILY PRN for HEADACHE, #30 TAB Prov:MONY MCNAIR MD 09/19/24 Famotidine (Pepcid) 20 Mg Tablet, 1 TAB PO DAILY for 90 Days, #90 TAB 0 Refills Prov:MONY MCNAIR MD 09/19/24 Amitriptyline HCl (Amitriptyline HCl) 25 Mg Tablet, 25 MG PO DAILYDINNER, #90 TAB Prov:MONY MCNAIR MD 09/19/24 Reported Medications Aspirin (Aspirin) 81 Mg Tab.chew, 81 MG PO DAILY, TAB.CHEW 05/30/21 Losartan Potassium (Losartan Potassium) 50 Mg Tablet, 50 MG PO DAILY, TAB 05/30/21 Rosuvastatin Calcium (Rosuvastatin Calcium) 5 Mg Tablet, 5 MG PO DAILY, TAB 05/30/21 Discontinued Reported Medications Mecobalamin (B12 Active) 1,000 Mcg Tab.chew, 2500 MCG PO DAILY, TAB.CHEW 05/30/21 Calcium Carbonate/Vitamin D3 (Super Calcium 600 + D3 Tablet) 1 Each Tablet, 1 E ACH PO AM, TAB 05/30/21 Ca/D3/Mag/Zinc/Ananda/Juan/Mgbor (Caltrate 600+D3+Min Chew Tab) 1 Each Tab.chew, 1 EACH PO DAILY, TAB.CHEW 05/30/21 Amitriptyline HCl (Amitriptyline HCl) 50 Mg Tablet, 50 MG PO DAILY, TAB 05/30/21 Ubiquinol (Ubiquinol) 100 Mg Capsule, 100 MG PO DAILY, CAP 05/30/21 Discontinued Scripts Metronidazole (Metronidazole) 500 Mg Tablet, 1 TAB PO BID for 5 Days, #10 TAB 0 Refills Prov:YOCASTA TREVINO 08/17/24 Ondansetron (Ondansetron Odt) 4 Mg Tab.rapdis, 4 MG PO BID for 7 Days, #14 TAB Prov:YOCASTA TREVINO 08/17/24 Cyclobenzaprine HCl (Cyclobenzaprine HCl) 5 Mg Tablet, 5 MG PO BID PRN for MUSCLE SPASMS, #60 TAB 0 Refills Prov:KEVAN MANCINI APRN 02/09/22 Lidocaine (Lidoderm Patch 5%) 1 Patch Patch, 1 PATCH TP DAILY PRN for PAIN LEVEL 7 TO 10, #5 ADH.PATCH 0 Refills Prov:KEVAN MANCINI APRN 02/09/22 MONY MCNAIR MD Sep 20, 2024 15:32
[2024-09-20] MEDS ORDERED: AMITRIPTYLINE 25 MG TABLET PO SCH (17:00)
[2024-09-21] MEDS ORDERED: MECL-302 PO (08:01)
== END 2024-09-20 10:10 | disposition home or self-care (01) ==
LOC: EDH 11:04 → EDHIP 14:23
PROVIDERS: ADMIT Internal Medicine; ATTEND Internal Medicine
DX: R42 Dizziness and giddiness (principal); G31.89 Other specified degenerative diseases of nervous system; I12.9 Hypertensive chronic kidney disease with stage 1 through stage 4 chronic kidney disease, or unspecified chronic kidney disease; E11.22 Type 2 diabetes mellitus with diabetic chronic kidney disease; N18.2 Chronic kidney disease, stage 2 (mild); K22.4 Dyskinesia of esophagus; K21.9 Gastro-esophageal reflux disease without esophagitis; I25.10 Atherosclerotic heart disease of native coronary artery without angina pectoris; G44.029 Chronic cluster headache, not intractable; G43.909 Migraine, unspecified, not intractable, without status migrainosus; E75.6 Lipid storage disorder, unspecified; E88.810 Metabolic syndrome; Z79.82 Long term (current) use of aspirin; Z86.73 Personal history of transient ischemic attack (TIA), and cerebral infarction without residual deficits
CPT/HCPCS: 96360; 96361; 99285; 82550; 83721; 84484; 80048; 83880; 85025; 85610; 85730; 36415; 71045; 70450; 70551; 93005; G0378 ×20

== ENCOUNTER → 2024-12-06 | Outpatient (CLI) | payer MEDICARE ==
[~2024-12-06] MED LIST changes: +AMIT25TA9 PO; -AMIT50TA3 PO; -CA/D1TAB7 PO; -CALC-1058 PO; -CYCL5TAB3 PO; +ERGO2000 PO; +ESTR42.53 VG; -LIDOP TP; +MECL-302 PO; -MECO10005 PO; -METR-172 PO; -ONDA-243 PO; -UBIQ100C2 PO
--- NOTE | 2024-12-06 11:19 | HMCIMG ---
MAMMO SCREENING BILATERAL HISTORY: Screening mammogram. COMPARISON: 12/06/2023 TECHNIQUE: Bilateral screening mammogram with CAD was performed with craniocaudal and mediolateral oblique projections. FINDINGS: There are scattered areas of fibroglandular density. There is no evidence of a dominant mass, or suspicious microcalcification. There is no evidence of nipple retraction or skin thickening. IMPRESSION: 1. Stable mammogram. Patient was entered into a reminder system with a target due date for their next mammogram. BI-RADS: CATEGORY 2: BENIGN FINDINGS Recommend monthly self breast exam as well as annual clinical examination. A negative x-ray should not delay biopsy if a dominant or clinically suspicious mass is present, since 8-10% of cancers are not identified by mammography. Dense breasts particularly, may obscure an underlying neoplasm. Some of these may be detected clinically and therefore, clinical examination is an essential part of breast evaluation.
== END | disposition home or self-care (01) ==
LOC: RAH 09:39
PROVIDERS: ATTEND Internal Medicine
DX: Z12.31 Encounter for screening mammogram for malignant neoplasm of breast (principal); R92.323 Mammographic fibroglandular density, bilateral breasts
CPT/HCPCS: 77067